=== PATIENT | male | born 1950 | race Caucasian/White ===

== ENCOUNTER → 2017-12-06 | Outpatient (CLI) | payer OTHER ==
[2017-07-31 08:44] VITALS: BMI 29.3
[~2017-12-06] MED LIST: ACE3 PO; ACE325 PO; AMLO-546 PO; AMLO-552 PO; AMOX-559 PO; APIX5TAB PO; ASPI81TA94 PO; ATOR40TA24 PO; ATR10 PO; CALC-18 PO; CALC-597 PO; CALC-852 PO; CALC500T6 PO; CALC600T63 PO; CARV3.1255 PO; CEP500 PO; CEPH250C37 PO; CEPH500T7 PO; CLOP75TA PO; CYAN1TAB3 PO; CYAN250013; Clindamycin Hcl PO; DESV100T PO; DESV50TA9 PO; DEXL30CA5 PO; DEXL60CA6 PO; FERR325C2 PO; FERR325T24 PO; FISH1CAP15 PO; FOLTX PO; FURO40TA35 PO; GLUC-135 PO; GLUC-139 PO; GLUC-198 PO; HUMALOG; HUMALOG SC; HYDR-4309 PO; INSU100C12 SQ; INSU100V24 SQ; INSU300I SUBQ; INSULIN HUMALOG SUBQ; LANI SQ; LANI SUBQ; LOSA100T67 PO; METO25TA93 PO; METO5TAB79 PO; MOM PO; MOX400 PO; MULT-865 PO; MULT1CAP59 PO; NAPR220C12 PO; NITR0.4T3 SL; NITR1PAT62 TD; OMEG-55 PO; OMEG500C7 PO; OXYC-865 PO; OXYGENHOME INH; PAN40 PO; PANT40TA65 PO; PEDI18TA2 PO; PYRI25TA18 PO; RAMI10CA62 PO; RAN150 PO; RANI-324 PO; SUCR1TAB51 PO; SUCR1TAB85 PO; SULF-198 PO; TRAZ-133 PO; VALA100059 PO; VITA-175 PO; VITA1CAP50 PO; [UNRECOGNIZED DRUG - CODE] PO
[2017-12-06 13:56] LABS: PLATELET COUNT, AUTOMATED 235 K/uL (150-450)
== END ==
LOC: LAB 13:44
PROVIDERS: ATTEND Nurse Practitioner Family
DX: T14.8XXA Other injury of unspecified body region, initial encounter (principal)
CPT/HCPCS: 36415; 85025

== ENCOUNTER → 2018-07-12 | Outpatient (CLI) | payer OTHER, MEDICARE ==
[2017-07-31 08:44] VITALS: BMI 29.3
[~2018-07-12] MED LIST changes: -HYDR-4309 PO; +HYDR-653 PO; +INSU100I28 SQ; -LOSA100T67 PO; +LOSA100T69 PO; -RANI-324 PO; +RANI-366 PO
== END ==
LOC: LAB 09:22
PROVIDERS: ATTEND Internal Medicine Cardiovascular Disease
DX: I25.10 Atherosclerotic heart disease of native coronary artery without angina pectoris (principal)
CPT/HCPCS: 36415; 82310; 82374; 82435; 82565; 82947; 83880; 84132; 84295; 84520

== ENCOUNTER 2018-11-07 08:32 | Emergency (ER) | payer MEDICARE, OTHER ==
[2017-07-31 08:44] VITALS: Wt 99.9 kg
[~2018-11-07 08:32] MED LIST changes: -LOSA100T69 PO; +LOSA100T75 PO; +NITR1PAT27 TD; -NITR1PAT62 TD
[2018-11-07] MEDS ORDERED: NS(*) 0.9% 1000 ML BAG 1,000 ML IV ONE (09:05)
[2018-11-07] MEDS ORDERED: ceFAZolin(*) 1 GM VIAL 1 GM in NS(*) 0.9% 100 ML ADDVANT BAG 100 ML IV ONE (09:05)
[2018-11-07] MEDS ORDERED: TRIMETH/SULFA DS 160-800MG TAB PO ONE (09:05)
[2018-11-07 09:36] LABS: PLATELET COUNT, AUTOMATED 225 K/uL (150-450)
[2018-11-07 10:00] VITALS: BP 135/89
[2018-11-07] MEDS ORDERED: CEPH500T7 PO (10:08)
[2018-11-07] MEDS ORDERED: SULF-198 PO (10:08)
--- NOTE | 2018-11-07 10:13 | ER Report ---
History and Physical Time Seen By MD: 08:50 Hx. of Stated Complaint: INJURED L FOOT SUNDAY, SHOE FULL OF BLOOD, TODAY WOKE UP WITH REDNESS AND SWELLING IN L FOOT HPI/ROS CHIEF COMPLAINT: Lower extremity redness HISTORY OF PRESENT ILLNESS: 68-year-old male diabetic with peripheral neuropathy and history of prior amputations for MRSA, presents with redness spreading up left foot and lower leg since this morning. Patient notes that on Sunday he had injury to left small toe because he stepped on a paper clip and did not notice it initially, he treated this with bacitracin and it initially seemed to be doing fine until this morning. This morning he noted redness spreading up leg, streaking of rash, and pain. No fevers, chills, vomiting, chest pain, trouble breathing. REVIEW OF SYSTEMS: Constitutional: No fever, no chills. Eyes: no blurred vision ENT: no difficulty swallowing Cardiovascular: No chest pain, no palpitations. Respiratory: No cough, no shortness of breath. Gastrointestinal: no vomiting Genitourinary: no dysuria Musculoskeletal: No back pain. Skin: above Neurological: No headache. Remainder of the 14 system rev: Yes Allergies: Coded Allergies: atropine (Verified Allergy, Severe, 07/30/17) Home Meds Active Scripts Desvenlafaxine (DESVENLAFAXINE ER) 100 Mg Tab.er.24h, 1 TAB PO QDAY, #90 TAB 1 Refill Prov:DREA RODRÍGUEZ MD 10/28/18 Folic Acid/Cyanocob/Pyridoxine (FOLBEE TABLET) 1 Each Tab, 2 TAB PO QDAY, #180 TAB 3 Refills Prov:DREA RODRÍGUEZ MD 05/21/18 Insulin Glargine,Hum.rec.anlog (Waldo Tolbert) 300 Unit/1 Ml Insuln.pen, 20 UNITS SUBQ QDAY, #10 BOX 3 Refills Prov:DREA RODRÍGUEZ MD 05/21/18 Pantoprazole Sodium (PANTOPRAZOLE SODIUM) 40 Mg Tablet.dr, 40 MG PO QDAY, #90 TAB.SR 3 Refills Prov:DREA RODRÍGUEZ MD 05/21/18 Sucralfate (SUCRALFATE) 1 Gm Tablet, 1 GM PO QID, #360 TAB 3 Refills Prov:DREA RODRÍGUEZ MD 05/21/18 Carvedilol (COREG) 3.125 Mg Tablet, 3.125 MG PO BID, #180 TAB 3 Refills Prov:DREA RODRÍGUEZ MD 05/21/18 Insulin Lispro 100 Un/Ml Pen (HUMALOG 3 ML PEN) 100 Unit/1 Ml Insuln.pen, 15 UNIT SQ DIRECTED, #15 DIS.SYR 3 Refills Inject with each meal. Prov:DREA RODRÍGUEZ MD 02/15/18 Furosemide (LASIX) 40 Mg Tablet, 1 TAB PO QDAY, #90 TAB 4 Refills Prov:DREA RODRÍGUEZ MD 11/26/17 Atorvastatin Calcium (LIPITOR) 40 Mg Tablet, 1 TAB PO QDAY, #90 TAB 4 Refills Prov:DREA RODRÍGUEZ MD 10/26/17 Losartan Potassium (LOSARTAN POTASSIUM) 100 Mg Tablet, 100 MG PO QDAY, #90 TAB 3 Refills Prov:DREA RODRÍGUEZ MD 10/12/17 Metolazone (METOLAZONE) 5 Mg Tablet, 1 TAB PO BID, #180 TAB 3 Refills Prov:DREA RODRÍGUEZ MD 10/12/17 Apixaban (ELIQUIS) 5 Mg Tablet, 1 TAB PO BID, #180 TAB 3 Refills Prov:DREA RODRÍGUEZ MD 10/12/17 Reported Medications Fish Oil/Dha/Epa (FISH OIL 1,200 MG FISH OIL) 1 Each Capsule, 1 CAP PO BID, CAPSULE 06/21/17 Gluc Young/Chondro Young A/Vit C/Mn (GLUCOSAMINE CHONDROITIN TAB) 1 Each Tablet, 2 TAB PO QDAY 06/21/17 Calcium Carbonate/Vitamin D3 (CALCIUM 600 + VIT D TABLET) 1 Each Tablet, 2 TAB PO QDAY 06/21/17 Oxygen (OXYGEN) Inha, 3 L INH cont. inc w/activity, L 05/16/17 Aspirin (ASPIRIN) 81 Mg Tab.chew, 81 MG PO QDAY, TAB.CHEW 05/16/17 Discontinued Reported Medications Vitamin B Complex (B COMPLEX) 1 Each Tablet, 1 EACH PO QDAY 05/16/17 Reviewed Nurses Notes: Yes Old Medical Records Reviewed: Yes Hx Smoking: No Smoking Status: Former Smoker Exposure to Second Hand Smoke?: No Hx Substance Use Disorder: No Hx Alcohol Use: No Constitutional Vital Sign - Last 24 Hours 11/07/18 11/07/18 11/07/18 11/07/18 08:40 08:40 08:47 09:00 Temp 98.2 Pulse 64 68 Resp 18 B/P (MAP) 143/84 143/84 (103) 139/85 (103) Pulse Ox 80 98 O2 Delivery Room Air 11/07/18 11/07/18 11/07/18 11/07/18 09:02 09:17 09:30 09:32 Pulse 64 63 62 B/P (MAP) 117/74 (88) Pulse Ox 96 96 95 Physical Exam General Appearance: The patient is alert, has no immediate need for airway protection and no signs of toxicity. Eyes: Pupils equal and round no pallor or injection. ENT, Mouth: Mucous membranes are moist. Respiratory: There are no retractions, lungs are clear to auscultation. Cardiovascular: Regular rate and rhythm. Gastrointestinal: abdomen is soft, nondistended Neurological: alert, oriented, moves all ext Skin: left small toe erythema without fluctuance, erythema streaking to dorsum of foot and prox to lower calf Musculoskeletal: Extremities are nontender, nonswollen and have full range of motion; other than above. No popliteal or thigh ttp DIFFERENTIAL DIAGNOSIS: After history and physical exam differential diagnosis was considered for cellulitis, abscess, lymphangitic streaking, or other complication of infection Medical Decision Making Data Points Result Diagram: 11/07/1892411/07/18924 Laboratory Hematology Test 11/07/18 08:25 11/07/18 09:25 Blood Gas Patient Temperature 98.2 DEGREES Venous Blood pH 7.38 (7.31-7.41) Venous Blood Partial Pressure CO2 37 mmHg Venous Blood Partial Pressure O2 49 mmHg Venous Blood HCO3 22 mmol/L Venous Blood Oxygen Saturation 84 % Venous Blood Base Excess -3 mmol/L Oxygen Liters/Minute 3l Red Blood Count 5.21 M/uL (4.00-5.60) Mean Corpuscular Volume 86.5 fL (80.0-96.0) Mean Corpuscular Hemoglobin 28.0 pg (26.0-33.0) Mean Corpuscular Hemoglobin Concent 32.4 g/dL (32.0-36.0) Red Cell Distribution Width 14.6 % (11.5-14.5) Mean Platelet Volume 8.0 fL (7.2-11.1) Neutrophils (%) (Auto) 79.8 % (39.4-72.5) Lymphocytes (%) (Auto) 7.2 % (17.6-49.6) Monocytes (%) (Auto) 9.2 % (4.1-12.4) Eosinophils (%) (Auto) 3.4 % (0.4-6.7) Basophils (%) (Auto) 0.4 % (0.3-1.4) Nucleated RBC Relative Count (auto) 0.0 /100WBC Neutrophils # (Auto) 10.5 K/uL (2.0-7.4) Lymphocytes # (Auto) 0.9 K/uL (1.3-3.6) Monocytes # (Auto) 1.2 K/uL (0.3-1.0) Eosinophils # (Auto) 0.4 K/uL (0.0-0.5) Basophils # (Auto) 0.1 K/uL (0.0-0.1) Nucleated RBC Absolute Count (auto) 0.00 K/uL Sodium Level 138 mmol/L (137-145) Potassium Level 3.8 mmol/L (3.5-5.0) Chloride Level 106 mmol/L (98-107) Carbon Dioxide Level 23 mmol/L (22-30) Blood Urea Nitrogen 26 mg/dl (9-21) Creatinine 1.00 mg/dl (0.66-1.25) Glomerular Filtration Rate Calc > 60.0 Random Glucose 175 mg/dl (75-110) Calcium Level 8.4 mg/dl (8.4-10.2) Total Bilirubin 0.9 mg/dl (0.2-1.3) Aspartate Amino Transf (AST/SGOT) 19 U/L (0-35) Alanine Aminotransferase (ALT/SGPT) 41 U/L (0-56) Alkaline Phosphatase 91 U/L (0-126) Total Protein 6.2 g/dl (6.3-8.2) Albumin 3.4 g/dl (3.5-5.0) Chemistry Test 11/07/18 08:25 11/07/18 09:25 Blood Gas Patient Temperature 98.2 DEGREES Venous Blood pH 7.38 (7.31-7.41) Venous Blood Partial Pressure CO2 37 mmHg Venous Blood Partial Pressure O2 49 mmHg Venous Blood HCO3 22 mmol/L Venous Blood Oxygen Saturation 84 % Venous Blood Base Excess -3 mmol/L Oxygen Liters/Minute 3l White Blood Count 13.2 k/uL (4.5-11.0) Red Blood Count 5.21 M/uL (4.00-5.60) Hemoglobin 14.6 g/dL (14.0-18.0) Hematocrit 45.1 % (42.0-52.0) Mean Corpuscular Volume 86.5 fL (80.0-96.0) Mean Corpuscular Hemoglobin 28.0 pg (26.0-33.0) Mean Corpuscular Hemoglobin Concent 32.4 g/dL (32.0-36.0) Red Cell Distribution Width 14.6 % (11.5-14.5) Platelet Count 225 K/uL (150-450) Mean Platelet Volume 8.0 fL (7.2-11.1) Neutrophils (%) (Auto) 79.8 % (39.4-72.5) Lymphocytes (%) (Auto) 7.2 % (17.6-49.6) Monocytes (%) (Auto) 9.2 % (4.1-12.4) Eosinophils (%) (Auto) 3.4 % (0.4-6.7) Basophils (%) (Auto) 0.4 % (0.3-1.4) Nucleated RBC Relative Count (auto) 0.0 /100WBC Neutrophils # (Auto) 10.5 K/uL (2.0-7.4) Lymphocytes # (Auto) 0.9 K/uL (1.3-3.6) Monocytes # (Auto) 1.2 K/uL (0.3-1.0) Eosinophils # (Auto) 0.4 K/uL (0.0-0.5) Basophils # (Auto) 0.1 K/uL (0.0-0.1) Nucleated RBC Absolute Count (auto) 0.00 K/uL Glomerular Filtration Rate Calc > 60.0 Calcium Level 8.4 mg/dl (8.4-10.2) Total Bilirubin 0.9 mg/dl (0.2-1.3) Aspartate Amino Transf (AST/SGOT) 19 U/L (0-35) Alanine Aminotransferase (ALT/SGPT) 41 U/L (0-56) Alkaline Phosphatase 91 U/L (0-126) Total Protein 6.2 g/dl (6.3-8.2) Albumin 3.4 g/dl (3.5-5.0) ED Course/Re-evaluation ED Course 68-year-old male with diabetes, history of MRSA, presents with new cellulitis with source in left small toe. He does not have evidence of abscess. He does understand the potential for serious infection. After initial antibiotics in ED, patient's erythema is marked is beginning to recede. He is reasonable for discharge, however I recommend next day follow-up. Patient is amenable to this plan and understands need to take antibiotics as prescribed as well as follow-up closely. Decision to Disposition Date: Nov 07, 2018 Decision to Disposition Time: 10:04 Depart Departure Latest Vital Signs Vital Signs Date Time Temp Pulse Resp B/P (MAP) Pulse Ox O2 Delivery O2 Flow Rate FiO2 11/07/18 09:32 62 95 11/07/18 09:30 117/74 (88) 11/07/18 08:40 98.2 18 Room Air Impression: Primary Impression: Cellulitis Condition: Improved Disposition: HOME OR SELF-CARE Referrals: DREA RODRÍGUEZ MD (PCP) 1 Day New Scripts Cephalexin 500 Mg Tab (KEFLEX 500 MG TAB) 500 Mg Tablet 500 MG PO Q8H for 10 Days, #30 TAB Prov: VIVIANA REECE MD 11/07/18 Sulfamethoxazole/Trimet 800-160 Mg Tab (BACTRIM DS TABLET) 1 Each Tablet 1 TAB PO Q12H for 10 Days, #20 TAB Prov: VIVIANA REECE MD 11/07/18 Patient Instructions: Cellulitis (ED) Additional Instructions: As you are improved after initial treatment, it is reasonable to go home and continue antibiotics. I recommend you follow up tomorrow with your primary doctor for reevaluation. Please return to the emergency department if you cannot get in for follow-up or if you are worse at all. The Bactrim that I'm prescribing can interact with your losartan, therefore I recommend you do not take losartan until the Bactrim is completely gone, or unless you primary doctor advises differently. Problem Qualifiers Primary Impression: Cellulitis Site of cellulitis: extremity Site of cellulitis of extremity: toe Laterality: left Qualified Codes: L03.032 - Cellulitis of left toe VIVIANA REECE MD Nov 07, 2018 10:13
[2018-11-08] MEDS ORDERED: CIPR-344 PO (09:54)
== END 2018-11-07 10:26 | disposition home or self-care (01) ==
LOC: ER 09:02
DX: L03.032 Cellulitis of left toe (principal)
CPT/HCPCS: 36415; 82803; 85025; 96365; 99283; A9270; J0690; J7030; J7050; 82040; 82247; 82310; 82374; 82435; 82565; 82947; 84075; 84132; 84155; 84295; 84450; 84460; 84520

== ENCOUNTER 2018-11-08 08:24 | Emergency (ER) | payer MEDICARE, OTHER ==
[2017-07-31 08:44] VITALS: Wt 99.8 kg
[2018-11-08] MEDS ORDERED: CIPROFLOXACIN 500 MG TAB PO ONE (08:45)
[2018-11-08 09:09] LABS: PLATELET COUNT, AUTOMATED 220 K/uL (150-450)
--- NOTE | 2018-11-08 09:16 | ER Report ---
History and Physical Time Seen By MD: 08:30 Hx. of Stated Complaint: toe infection HPI/ROS CHIEF COMPLAINT: Cellulitis HISTORY OF PRESENT ILLNESS: 68-year-old male was seen here yesterday for development of toe infection which initially improved in ED after antibiotics, however after 24 hours of antibiotics at home, has slightly worsened. Patient attempted to have primary doctor follow-up today but primary doctor did not have available appointments. Patient has also been soaking feet in hydrogen peroxide and Miya. Patient denies development of nausea, vomiting, chest pain, trouble breathing, headache, fever, chills. REVIEW OF SYSTEMS: Constitutional: No fever, no chills. Eyes: No discharge. ENT: No sore throat. Cardiovascular: No chest pain, no palpitations. Respiratory: No cough, no shortness of breath. Gastrointestinal: No abdominal pain, no vomiting. Genitourinary: No hematuria. Musculoskeletal: No back pain. Skin: above Neurological: No headache. Remainder of the 14 system rev: Yes Allergies: Coded Allergies: atropine (Verified Allergy, Severe, 11/08/18) Home Meds Active Scripts Cephalexin 500 Mg Tab (KEFLEX 500 MG TAB) 500 Mg Tablet, 500 MG PO Q8H for 10 Days, #30 TAB Prov:VIVIANA REECE MD 11/07/18 Sulfamethoxazole/Trimet 800-160 Mg Tab (BACTRIM DS TABLET) 1 Each Tablet, 1 TAB PO Q12H for 10 Days, #20 TAB Prov:VIVIANA REECE MD 11/07/18 Desvenlafaxine (DESVENLAFAXINE ER) 100 Mg Tab.er.24h, 1 TAB PO QDAY, #90 TAB 1 Refill Prov:DREA RODRÍGUEZ MD 10/28/18 Folic Acid/Cyanocob/Pyridoxine (FOLBEE TABLET) 1 Each Tab, 2 TAB PO QDAY, #180 TAB 3 Refills Prov:DREA RODRÍGUEZ MD 05/21/18 Insulin Glargine,Hum.rec.anlog (Toued Solostar) 300 Unit/1 Ml Insuln.pen, 20 UNITS SUBQ QDAY, #10 BOX 3 Refills Prov:DREA RODRÍGUEZ MD 05/21/18 Pantoprazole Sodium (PANTOPRAZOLE SODIUM) 40 Mg Tablet.dr, 40 MG PO QDAY, #90 TAB.SR 3 Refills Prov:DREA RODRÍGUEZ MD 05/21/18 Sucralfate (SUCRALFATE) 1 Gm Tablet, 1 GM PO QID, #360 TAB 3 Refills Prov:DREA RODRÍGUEZ MD 05/21/18 Carvedilol (COREG) 3.125 Mg Tablet, 3.125 MG PO BID, #180 TAB 3 Refills Prov:DREA RODRÍGUEZ MD 05/21/18 Insulin Lispro 100 Un/Ml Pen (HUMALOG 3 ML PEN) 100 Unit/1 Ml Insuln.pen, 15 UNIT SQ DIRECTED, #15 DIS.SYR 3 Refills Inject with each meal. Prov:DREA RODRÍGUEZ MD 02/15/18 Furosemide (LASIX) 40 Mg Tablet, 1 TAB PO QDAY, #90 TAB 4 Refills Prov:DREA RODRÍGUEZ MD 11/26/17 Atorvastatin Calcium (LIPITOR) 40 Mg Tablet, 1 TAB PO QDAY, #90 TAB 4 Refills Prov:DREA RODRÍGUEZ MD 10/26/17 Losartan Potassium (LOSARTAN POTASSIUM) 100 Mg Tablet, 100 MG PO QDAY, #90 TAB 3 Refills Prov:DREA RODRÍGUEZ MD 10/12/17 Metolazone (METOLAZONE) 5 Mg Tablet, 1 TAB PO BID, #180 TAB 3 Refills Prov:DREA RODRÍGUEZ MD 10/12/17 Apixaban (ELIQUIS) 5 Mg Tablet, 1 TAB PO BID, #180 TAB 3 Refills Prov:DREA RODRÍGUEZ MD 10/12/17 Reported Medications Fish Oil/Dha/Epa (FISH OIL 1,200 MG FISH OIL) 1 Each Capsule, 1 CAP PO BID, CAPSULE 06/21/17 Gluc Young/Chondro Young A/Vit C/Mn (GLUCOSAMINE CHONDROITIN TAB) 1 Each Tablet, 2 TAB PO QDAY 06/21/17 Calcium Carbonate/Vitamin D3 (CALCIUM 600 + VIT D TABLET) 1 Each Tablet, 2 TAB PO QDAY 06/21/17 Oxygen (OXYGEN) Inha, 3 L INH cont. inc w/activity, L 05/16/17 Aspirin (ASPIRIN) 81 Mg Tab.chew, 81 MG PO QDAY, TAB.CHEW 05/16/17 Discontinued Reported Medications Vitamin B Complex (B COMPLEX) 1 Each Tablet, 1 EACH PO QDAY 05/16/17 Reviewed Nurses Notes: Yes Old Medical Records Reviewed: Yes Hx Smoking: No Smoking Status: Former Smoker Exposure to Second Hand Smoke?: No Hx Substance Use Disorder: No Hx Alcohol Use: No Constitutional Vital Sign - Last 24 Hours 11/08/18 08:29 Temp 98.2 Pulse 73 Resp 16 Pulse Ox 76 O2 Delivery Room Air Physical Exam General Appearance: The patient is alert, has no immediate need for airway protection and no signs of toxicity. Eyes: Pupils equal and round no pallor or injection. ENT, Mouth: Mucous membranes are moist. Respiratory: There are no retractions, lungs are clear to auscultation. Cardiovascular: Regular rate and rhythm. Neurological: alert, moves all ext Skin: increased erythema around toe and dorsum of foot, compared to yesterday. No fluctuance or purulent drainage. There is decreased lymphangitic streaking, however. Musculoskeletal: Extremities are nontender, nonswollen and have full range of motion other than area of erythema as above DIFFERENTIAL DIAGNOSIS: After history and physical exam differential diagnosis was considered for abscess, cellulitis resistant to outpt abx Medical Decision Making Data Points Result Diagram: 11/08/18 0857 11/08/18 0857 Laboratory Hematology Test 11/08/18 08:57 Red Blood Count 5.20 M/uL (4.00-5.60) Mean Corpuscular Volume 86.5 fL (80.0-96.0) Mean Corpuscular Hemoglobin 28.0 pg (26.0-33.0) Mean Corpuscular Hemoglobin Concent 32.4 g/dL (32.0-36.0) Red Cell Distribution Width 14.4 % (11.5-14.5) Mean Platelet Volume 8.1 fL (7.2-11.1) Neutrophils (%) (Auto) 83.1 % (39.4-72.5) Lymphocytes (%) (Auto) 6.0 % (17.6-49.6) Monocytes (%) (Auto) 8.6 % (4.1-12.4) Eosinophils (%) (Auto) 1.9 % (0.4-6.7) Basophils (%) (Auto) 0.4 % (0.3-1.4) Nucleated RBC Relative Count (auto) 0.0 /100WBC Neutrophils # (Auto) 12.7 K/uL (2.0-7.4) Lymphocytes # (Auto) 0.9 K/uL (1.3-3.6) Monocytes # (Auto) 1.3 K/uL (0.3-1.0) Eosinophils # (Auto) 0.3 K/uL (0.0-0.5) Basophils # (Auto) 0.1 K/uL (0.0-0.1) Nucleated RBC Absolute Count (auto) 0.00 K/uL Peripheral Blood Smear Yes Y/N Sodium Level 135 mmol/L (137-145) Potassium Level 3.9 mmol/L (3.5-5.0) Chloride Level 104 mmol/L (98-107) Carbon Dioxide Level 21 mmol/L (22-30) Blood Urea Nitrogen 29 mg/dl (9-21) Creatinine 1.20 mg/dl (0.66-1.25) Glomerular Filtration Rate Calc 59.9 Random Glucose 198 mg/dl (75-110) Calcium Level 8.9 mg/dl (8.4-10.2) Chemistry Test 11/08/18 08:57 White Blood Count 15.3 k/uL (4.5-11.0) Red Blood Count 5.20 M/uL (4.00-5.60) Hemoglobin 14.5 g/dL (14.0-18.0) Hematocrit 44.9 % (42.0-52.0) Mean Corpuscular Volume 86.5 fL (80.0-96.0) Mean Corpuscular Hemoglobin 28.0 pg (26.0-33.0) Mean Corpuscular Hemoglobin Concent 32.4 g/dL (32.0-36.0) Red Cell Distribution Width 14.4 % (11.5-14.5) Platelet Count 220 K/uL (150-450) Mean Platelet Volume 8.1 fL (7.2-11.1) Neutrophils (%) (Auto) 83.1 % (39.4-72.5) Lymphocytes (%) (Auto) 6.0 % (17.6-49.6) Monocytes (%) (Auto) 8.6 % (4.1-12.4) Eosinophils (%) (Auto) 1.9 % (0.4-6.7) Basophils (%) (Auto) 0.4 % (0.3-1.4) Nucleated RBC Relative Count (auto) 0.0 /100WBC Neutrophils # (Auto) 12.7 K/uL (2.0-7.4) Lymphocytes # (Auto) 0.9 K/uL (1.3-3.6) Monocytes # (Auto) 1.3 K/uL (0.3-1.0) Eosinophils # (Auto) 0.3 K/uL (0.0-0.5) Basophils # (Auto) 0.1 K/uL (0.0-0.1) Nucleated RBC Absolute Count (auto) 0.00 K/uL Peripheral Blood Smear Yes Y/N Glomerular Filtration Rate Calc 59.9 Calcium Level 8.9 mg/dl (8.4-10.2) ED Course/Re-evaluation ED Course 68-year-old male returns with worsening cellulitis. Given location on foot and diabetic is likely that this is Pseudomonas. Patient had previously stated that he required amputation of toes due to MRSA infections so treatment focused on that yesterday. At this point, we'll will initiate Cipro and alter antibiotics to Cipro and Bactrim. I offered inpatient admission for further monitoring the patient does not wish to do this at this time. Therefore, cultures drawn and will adjust antibiotics as above. After ED eval, pt believes he feels slightly improved; will d/c with cipro, hold keflex, and pt will rtn to see me later or tomorrow if worse. Decision to Disposition Date: Nov 08, 2018 Decision to Disposition Time: 09:51 Depart Departure Latest Vital Signs Vital Signs Date Time Temp Pulse Resp B/P (MAP) Pulse Ox O2 Delivery O2 Flow Rate FiO2 11/08/18 08:29 98.2 73 16 76 Room Air Impression: Primary Impression: Cellulitis Condition: Improved Disposition: HOME OR SELF-CARE Referrals: DREA RODRÍGUEZ MD (PCP) 2 Days New Scripts Ciprofloxacin Hcl 500 Mg Tab (CIPRO 500 MG TAB) 500 Mg Tablet 500 MG PO BID for 7 Days, #14 TAB Prov: VIVIANA REECE MD 11/08/18 Additional Instructions: As we discussed, you may stop the Keflex. Continue taking Bactrim and add Cipro. The Cipro can raise your blood sugar as can the infection so make sure you watch closely and use your sliding scale as indicated. Please return immediately to see me if you are worse at all. As we discussed, you may require IV antibiotics to treat this infection. Please keep the open area covered and place bacitracin 3 times daily. Problem Qualifiers Primary Impression: Cellulitis Site of cellulitis: extremity Site of cellulitis of extremity: lower extremity Laterality: left Qualified Codes: L03.116 - Cellulitis of left lower limb VIVIANA REECE MD Nov 08, 2018 09:16
[2018-11-08] MEDS ORDERED: CIPR-344 PO (09:54)
[2018-11-08 10:00] VITALS: BP 129/32
== END 2018-11-08 10:12 | disposition home or self-care (01) ==
LOC: ER 08:34
DX: L03.032 Cellulitis of left toe (principal)
CPT/HCPCS: 36415; 85025; 87040; 99283; A9270; 82310; 82374; 82435; 82565; 82947; 84132; 84295; 84520

== ENCOUNTER → 2019-02-19 | Outpatient (CLI) | payer MEDICARE, OTHER ==
[2017-07-31 08:44] VITALS: BMI 29.3
[~2019-02-19] MED LIST changes: +CIPR-344 PO
== END ==
LOC: LAB 14:31
PROVIDERS: ATTEND Internal Medicine Cardiovascular Disease
DX: I25.10 Atherosclerotic heart disease of native coronary artery without angina pectoris (principal)
CPT/HCPCS: 36415; 82040; 82247; 82310; 82374; 82435; 82465; 82565; 82947; 83718; 84075; 84132; 84155; 84295; 84450; 84460; 84478; 84520

== ENCOUNTER 2019-03-12 12:21 | Emergency (ER) | payer MEDICARE, OTHER ==
[2017-07-31 08:44] VITALS: Wt 102.1 kg
[~2019-03-12 12:21] MED LIST changes: -RANI-366 PO; +RANI-54 PO
--- NOTE | 2019-03-12 12:25 | ER Report ---
History and Physical Time Seen By MD: 12:23 HPI/ROS CHIEF COMPLAINT: Dizziness HISTORY OF PRESENT ILLNESS: Patient is a 69-year-old male here with complaints of dizziness and vertiginous symptoms since last night. Patient denies prior history of vertigo however he does describe the room is spinning, nausea associated with this. Patient does report that laying flat does exacerbate his symptoms. Denies recent history of trauma. Patient is hemodynamically stable at time of evaluation. REVIEW OF SYSTEMS: Constitutional: No fever, no chills. Eyes: No discharge. ENT: No sore throat. Cardiovascular: No chest pain, no palpitations. Respiratory: No cough, no shortness of breath. Gastrointestinal: No abdominal pain, no vomiting. Genitourinary: No hematuria. Musculoskeletal: No back pain. Skin: No rashes. Neurological: No headache. + Dizziness, worse with laying flat Allergies: Coded Allergies: atropine (Verified Allergy, Severe, 11/08/18) Home Meds Active Scripts Meclizine Hcl (MECLIZINE HCL) 25 Mg Tablet, 25 MG PO BID PRN for DIZZINESS, #10 TAB Prov:GYPSY ROTHMAN DO 03/12/19 Insulin Lispro 100 Un/Ml Pen (HUMALOG 3 ML PEN) 100 Unit/1 Ml Insuln.pen, 15 UNIT SQ DIRECTED, #15 DIS.SYR 1 Refill Inject with each meal. Prov:DREA RODRÍGUEZ MD 02/21/19 Atorvastatin Calcium (LIPITOR) 40 Mg Tablet, 1 TAB PO QDAY, #90 TAB 0 Refills Prov:DREA RODRÍGUEZ MD 02/21/19 Losartan Potassium (LOSARTAN POTASSIUM) 100 Mg Tablet, 100 MG PO QDAY, #90 TAB 0 Refills Prov:DREA RODRÍGUEZ MD 02/21/19 Apixaban (ELIQUIS) 5 Mg Tablet, 1 TAB PO BID, #180 TAB 0 Refills Prov:DREA RODRÍGUEZ MD 02/21/19 Desvenlafaxine (DESVENLAFAXINE ER) 100 Mg Tab.er.24h, 1 TAB PO QDAY, #90 TAB 1 Refill Prov:DREA RODRÍGUEZ MD 10/28/18 Folic Acid/Cyanocob/Pyridoxine (FOLBEE TABLET) 1 Each Tab, 2 TAB PO QDAY, #180 TAB 3 Refills Prov:DREA RODRÍGUEZ MD 05/21/18 Insulin Glargine,Hum.rec.anlog (Waldo Coonostar) 300 Unit/1 Ml Insuln.pen, 20 UNITS SUBQ QDAY, #10 BOX 3 Refills Prov:DREA RORDÍGUEZ MD 05/21/18 Pantoprazole Sodium (PANTOPRAZOLE SODIUM) 40 Mg Tablet.dr, 40 MG PO QDAY, #90 TAB.SR 3 Refills Prov:DREA RODRÍGUEZ MD 05/21/18 Carvedilol (COREG) 3.125 Mg Tablet, 3.125 MG PO BID, #180 TAB 3 Refills Prov:DREA RODRÍGUEZ MD 05/21/18 Reported Medications Fish Oil/Dha/Epa (FISH OIL 1,200 MG FISH OIL) 1 Each Capsule, 1 CAP PO BID, CAPSULE 06/21/17 Gluc Young/Chondro Young A/Vit C/Mn (GLUCOSAMINE CHONDROITIN TAB) 1 Each Tablet, 2 TAB PO QDAY 06/21/17 Calcium Carbonate/Vitamin D3 (CALCIUM 600 + VIT D TABLET) 1 Each Tablet, 2 TAB PO QDAY 06/21/17 Oxygen (OXYGEN) Inha, 3 L INH cont. inc w/activity, L 05/16/17 Aspirin (ASPIRIN) 81 Mg Tab.chew, 81 MG PO QDAY, TAB.CHEW 05/16/17 Discontinued Scripts Metolazone (METOLAZONE) 5 Mg Tablet, 1 TAB PO BID, #180 TAB 0 Refills Prov:DREA RODRÍGUEZ MD 02/21/19 Furosemide (LASIX) 40 Mg Tablet, 1 TAB PO QDAY, #90 TAB 1 Refill Prov:DREA RODRÍGUEZ MD 11/22/18 Ciprofloxacin Hcl 500 Mg Tab (CIPRO 500 MG TAB) 500 Mg Tablet, 500 MG PO BID for 7 Days, #14 TAB Prov:VIVIANA REECE MD 11/08/18 Cephalexin 500 Mg Tab (KEFLEX 500 MG TAB) 500 Mg Tablet, 500 MG PO Q8H for 10 Days, #30 TAB Prov:VIVIANA REECE MD 11/07/18 Sulfamethoxazole/Trimet 800-160 Mg Tab (BACTRIM DS TABLET) 1 Each Tablet, 1 TAB PO Q12H for 10 Days, #20 TAB Prov:VIVIANA REECE MD 11/07/18 Sucralfate (SUCRALFATE) 1 Gm Tablet, 1 GM PO QID, #360 TAB 3 Refills Prov:DREA RODRÍGUEZ MD 05/21/18 Hx Smoking: No Smoking Status: Former Smoker Exposure to Second Hand Smoke?: No Hx Substance Use Disorder: No Hx Alcohol Use: No Constitutional Vital Sign - Last 24 Hours 03/12/19 03/12/19 03/12/19 03/12/19 12:23 12:27 12:51 13:21 Temp 97.6 Pulse 60 60 60 Resp 20 B/P (MAP) 170/101 (124) 170/101 Pulse Ox 97 97 97 O2 Delivery Nasal Cannula Physical Exam General Appearance: The patient is alert, has no immediate need for airway protection and no signs of toxicity. Uncomfortable appearing Eyes: Pupils equal and round no pallor or injection. + Left beating horizontal nystagmus ENT, Mouth: Mucous membranes are moist. Respiratory: There are no retractions, lungs are clear to auscultation. Cardiovascular: Regular rate and rhythm. Gastrointestinal: Abdomen is soft and non tender, no masses, bowel sounds normal. Neurological: No focal neurological deficits, cranial nerves intact, left beating horizontal nystagmus which is fatigable, exacerbated by laying flat in the supine position Skin: Warm and dry, no rashes. Musculoskeletal: Neck is supple non tender. Extremities are nontender, nonswollen and have full range of motion. DIFFERENTIAL DIAGNOSIS: After history and physical exam differential diagnosis was considered for central versus peripheral vertigo, BPPV, electrolyte abnormality, intracranial bleed, labyrinthitis Medical Decision Making EKG/Imaging Imaging No acute intracranial findings, please see official radiology report for further details. ED Course/Re-evaluation ED Course Patient is a 69-year-old male here with complaints of dizziness, symptoms consistent with peripheral vertigo worse with lying flat in the supine position, left beating horizontal fatigable nystagmus. Patient received meclizine with significant improvement of symptoms. CT imaging of the head was completed due to this being his 1st episode of vertigo. CT imaging showed no acute findings. Patient is given prescription for Antivert. Modified Yong maneuver diagrams provided to the patient for home use. PCP follow-up recommended. Return precautions provided. Decision to Disposition Date: Mar 12, 2019 Decision to Disposition Time: 13:49 Depart Departure Latest Vital Signs Vital Signs Date Time Temp Pulse Resp B/P (MAP) Pulse Ox O2 Delivery O2 Flow Rate FiO2 03/12/19 13:21 60 97 03/12/19 12:27 97.6 20 170/101 Nasal Cannula Impression: Primary Impression: BPPV (benign paroxysmal positional vertigo) Condition: Improved Disposition: HOME OR SELF-CARE Referrals: DREA RODRÍGUEZ MD (PCP) New Scripts Meclizine Hcl (MECLIZINE HCL) 25 Mg Tablet 25 MG PO BID PRN for DIZZINESS, #10 TAB Prov: GYPSY ROTHMAN DO 03/12/19 Patient Instructions: Benign Paroxysmal Positional Vertigo (DC) Additional Instructions: Please drink plenty of water. You may take 1 tablet of meclizine every 8-12 hours as needed for dizziness and vertigo symptoms. Please return promptly if you develop fevers, worsening headache, visual changes, inability to keep down food or fluids, muscle weakness, numbness. Please follow-up with your family doctor in the next 24-48 hours for repeat evaluation. You may attempt the modified Yong maneuver as described in the diagram provided to. GYPSY ROTHMAN DO Mar 12, 2019 12:24
[2019-03-12 12:27] VITALS: BP 170/101
[2019-03-12] MEDS ORDERED: MECLIZINE HCL 25 MG TAB PO ONE (12:45)
[2019-03-12] MEDS ORDERED: MECL25TA9 PO (13:47)
--- NOTE | 2019-03-12 13:48 | RADIOLOGY IMAGING REPORT ---
FAC[place] [facility] [place]IENT NAME: Cristian Holly : 1950 MR: [id number] V: [id number] EXAM DATE: ORDERING PHYSICIAN: GYPSY ROTHMAN TECHNOLOGIST: Location: [facility] - [place] Patient: Cristian Holly : 1950 Visit/Account:[id number] Date of Sevice: 03/12/[address] scan without contrast HISTORY: Vertigo COMPARISONS: None TECHNIQUE: Non-contrast head CT was performed with sagittal and coronal reformations. One of the following dose optimization techniques was utilized in the performance of this exam: autom ated exposure control; adjustment of the mA and/or kV according to patient size; or use of iterative reconstruction technique. Specific details can be referenced in the facility's radiology CT exam ope rational policy. FINDINGS: There is no intracranial hemorrhage, hydrocephalus or midline shift. The basal cisterns, moise-white differentiation, and convexity sulci are maintained. Cataract postsurgical change. Right scleral bu ckle. Chronic small calcification along the right posterior globe. Mild to moderate patchy white ma tter hypoattenuation. Chronic basal ganglia calcification. Clear mastoid air cells. The left maxillary sinus cavity is diminutive and completely opacified. No rmal osseous structures. IMPRESSION: No acute intracranial abnormality. Mild to moderate chronic small vessel ischemic change. Report Dictated By: Hugh Perez MD at 03/12/2019 1:36 PM Report E-Signed By: Hugh Perez MD at 03/12/2019 1:41 PM [id number]
== END 2019-03-12 13:58 | disposition home or self-care (01) ==
LOC: ER 12:41
DX: H81.12 Benign paroxysmal vertigo, left ear (principal)
CPT/HCPCS: 70450; 99284; J8597

== ENCOUNTER 2019-03-26 10:30 | Outpatient (RCR) | payer MEDICARE, OTHER ==
[2017-07-31 08:44] VITALS: BMI 29.3
--- NOTE | 2019-03-19 13:48 | PT INITIAL EVALUATION ---
MEDICAL DIAGNOSIS: vertigo TREATMENT DIAGNOSIS: same DATE OF ONSET: 03/12/19 SUBJECTIVE: Cristian Holly presents to physical therapy with complaints of dizziness that spins when laying down in bed , looking down, and turning the right. He reports that he went to the ER and was given the Epleys maneuver and feels like it did not change his spinning or vertigo. He states that he becomes nausea but has not vomited as a result. 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 OBJECTIVE: Special Tests: (-) OCULOMOTOR/VESTIBULAR TESTING: Spontaneous Nystagmus: Absent VOR Head Thrust (horizontal canal function): R: Negative, L: Negative Gaze- Evoked Nystagmus with fixation present:Absent VOR Head Thrust (posterior canal function): R: Positive, L: Positive Posterior Horizontal Head-Shaking Nystagmus ( - ) Gaze-Evoked Nystagmus with fixation suppressed: absent Smooth Pursuit Saccades VOR Cancellation: Normal POSITIONING TEST: Left Hallpike + Right Hallpike + Roll Test + R and L ASSESSMENT: He will benefit in skilled physical therapy addressing the listed impairments to return to prior level of function. 3 weeks: Pt will be able to move her head into cervical extension, cervical rotation to the R and L, and turn head in bed with 0/10 dizziness to improve function and QOL. 3 weeks: Pt will be able to perform supine to sit to standing transfers and ambulate with 0/10 dizziness to improve function and QOL. Patient's Goals get rid of vertigo PLAN: Patient to be seen for Neuromuscular Re-ed, Gait Trg/Balance Trg, therapeutic activities, and Home Exercise Program If you have any questions, comments, or concerns about this report or plan, please contact me at . Thank you, Sherif Munguia, PT, DPT MTDD
[~2019-03-26 10:30] MED LIST changes: +MECL25TA9 PO
--- NOTE | 2019-03-26 11:00 | PT PLAN OF CARE ---
Physician: Fernando Gil MD Patient is being seen: [[email or web address]] Therapist: [[email or web address]] Medical Diagnosis: vertigo Treatment Diagnosis: same Date of Onset: 03/12/19 Date of Initial Evaluation: 03/18/19 Date patient was last seen: 03/26/19 Number of treatments: 3 Number of cancellations/No shows: [*] INTERVENTIONS: PLAN: Patient to be seen for Neuromuscular Re-ed, Gait Trg/Balance Trg, therapeutic activities, and Home Exercise Program GOALS: 3 weeks: Pt will be able to move her head into cervical extension, cervical rotation to the R and L, and turn head in bed with 0/10 dizziness to improve function and QOL. 3 weeks: Pt will be able to perform supine to sit to standing transfers and ambulate with 0/10 dizziness to improve function and QOL. PATIENT'S GOAL: get rid of vertigo Status of Patient's Goals: MET Patient Compliance: Excellent Prognosis: Reasons for continuing therapy: This is a discharge note for Cristian Holly. He reports that he is doing well. He denies any vertigo for the past two days. He reports that he feels like he is back to normal and feels like if it returns he knows how to get it go away. He demonstrated abolished nastagmus in all canals (anterior, posterior, and horizontal) and appears to have abolished vertigo and has returned to prior level of function. He is independent with his HEP. He has met his goals and will be discharged as a result. OBJECTIVE: Special Tests: (-) OCULOMOTOR/VESTIBULAR TESTING: Spontaneous Nystagmus: Absent VOR Head Thrust (horizontal canal function): R: Negative, L: Negative Gaze- Evoked Nystagmus with fixation present:Absent VOR Head Thrust (posterior canal function): R: negative, L: negative Posterior Horizontal Head-Shaking Nystagmus ( - ) Gaze-Evoked Nystagmus with fixation suppressed: absent Smooth Pursuit Saccades VOR Cancellation: Normal POSITIONING TEST: Left Hallpike - Right Hallpike - Roll Test - R and L If you have any questions, comments, or concerns about this report or plan, please contact me at . Thank you, Sherif Munguia, PT, DPT TJD
[2019-04-02] MEDS ORDERED: FLAS1KIT2 (16:10)
[2019-04-02] MEDS ORDERED: INSU300I SUBQ (16:10)
[2019-04-02] MEDS ORDERED: INSU100I28 SQ (16:10)
[2019-04-02] MEDS ORDERED: FLAS1EAC2 TD (16:10)
== END 2019-03-26 18:00 | disposition home or self-care (01) ==
LOC: PT 10:30
PROVIDERS: ATTEND Internal Medicine
DX: R42 Dizziness and giddiness (principal)
CPT/HCPCS: 97161